=== PATIENT | female | born 1980 | race Caucasian/White ===

== ENCOUNTER → 2018-09-14 | Outpatient (CLI) | payer BC ==
[2015-09-05 18:04] VITALS: BP 98/57
[~2018-09-14] MED LIST: ANTIVERT25 MG PO; DAILY MULTIPLE1 T18 PO; DHA PO; MALARONE 250 MG1 TAB PO; PROBIOTIC1 EAC1 PO; ZOFRAN ODT8 M1 PO
== END ==
LOC: RAD 08:54
DX: M25.511 Pain in right shoulder (principal); M25.521 Pain in right elbow

== ENCOUNTER → 2018-09-28 | Outpatient (CLI) | payer BC ==
[2015-09-05 18:04] VITALS: BP 98/57
== END ==
LOC: RAD 08:30
DX: M75.81 Other shoulder lesions, right shoulder (principal); M19.011 Primary osteoarthritis, right shoulder

== ENCOUNTER 2019-12-24 00:58 | Emergency (ER) | payer BC ==
[~2019-12-24] VITALS: Ht 162.6 cm; Wt 68.2 kg
[2019-12-24] MEDS ORDERED: VITAMIN C500 MG PO (01:05)
[2019-12-24] MEDS ORDERED: VITAMIN D-40010 MCG PO (01:05)
[2019-12-24 01:54] LABS: EOS # 0.1 (0.04-0.40); EOS % 0.7 % (1.0-5.0); HEMATOCRIT 39.8 % (37.0-47.0); HEMOGLOBIN 13.2 g/dL (12.5-16.0); LYMPH# 1.4 (1.50-4.00); MEAN CELL VOLUME 89 fl (78-100); MEAN CORPUSCULAR HEMOGLOBIN 30 pg (27-31); MEAN CORPUSCULAR HGB CONC 33 g/dL (33-37); MONO # 0.6 (0.20-0.80); NEU # 5.1 (1.40-6.50); PLATELET COUNT 226 K/mm3 (130-400); RED BLOOD COUNT 4.46 M/mm3 (4.10-5.30); RED CELL DISTRIBUTION WIDTH 13.3 % (11.5-14.5); WHITE BLOOD COUNT 7.2 K/mm3 (4.8-10.8)
[2019-12-24 01:55] LABS: ALBUMIN 4.4 g/dL (3.5-5.0); POTASSIUM 3.4 mmol/L (3.5-5.1)
[2019-12-24 01:56] LABS: CALCIUM 9.1 mg/dL (8.3-10.5)
[2019-12-24 01:58] LABS: TOTAL PROTEIN 7.1 g/dL (6.4-8.3)
[2019-12-24 01:59] LABS: TOTAL BILIRUBIN 0.3 mg/dL (0.2-1.2)
[2019-12-24] MEDS ORDERED: ZOFRAN ODT4 MG PO (02:29)
[2019-12-24] MEDS ORDERED: MECLIZINE PO (02:29)
[2019-12-24 02:40] VITALS: BP 104/66
== END 2019-12-24 02:40 | disposition home or self-care (01) ==
LOC: ED 00:58
PROVIDERS: Family Medicine
DX: R42 Dizziness and giddiness (principal); R11.10 Vomiting, unspecified
CPT/HCPCS: J2405

== ENCOUNTER → 2020-02-27 | Outpatient (CLI) | payer BC ==
[~2020-02-27] MED LIST changes: +MECLIZINE PO; +VITAMIN C500 MG PO; +VITAMIN D-40010 MCG PO; +ZOFRAN ODT4 MG PO
== END ==
LOC: RAD 07:30
DX: H90.41 Sensorineural hearing loss, unilateral, right ear, with unrestricted hearing on the contralateral side (principal)
CPT/HCPCS: A9585

== ENCOUNTER → 2020-04-25 | Outpatient (CLI) | payer BC | LOC: LAB 10:15 | DX: Z91.018 Allergy to other foods (principal) ==